=== PATIENT | male | born 1985 | race Caucasian/White ===

== ENCOUNTER 2016-12-04 22:27 | Emergency (ER) | payer OTHER ==
[~2016-12-04] VITALS: Ht 182.9 cm; Wt 86.2 kg
[2016-12-04 22:31] VITALS: BP 134/86
[2016-12-04] MEDS ORDERED: DULOXETINE HCL60 MG PO (22:38)
[2016-12-04] MEDS ORDERED: BUPROPION HCL100 M3 PO (22:38)
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
[2016-12-05] MEDS ORDERED: IBUPROFEN600 M1 PO (01:43)
[2016-12-05] MEDS ORDERED: CYCLOBENZAPRINE10 M1 PO (01:43)
== END 2016-12-05 01:58 ==
LOC: ERH 22:27
DX: S16.1XXA Strain of muscle, fascia and tendon at neck level, initial encounter (principal); V49.40XA Driver injured in collision with unspecified motor vehicles in traffic accident, initial encounter; Y92.9 Unspecified place or not applicable